=== PATIENT | female | born 1980 | race Caucasian/White ===

== ENCOUNTER 2017-12-23 11:49 | Emergency (ER) | payer SELFPAY ==
[~2017-12-23] VITALS: Ht 180.3 cm; Wt 145.1 kg
[2017-12-23 12:02] VITALS: BP 137/88
--- NOTE | 2017-12-23 12:13 | ED.ADGEN ---
Past History Past Medical History: Diabetes Past Surgical History: Other Alcohol Use: None Drug Use: None Adult General HPI HPI 37-year-old female presents the emergency department with 3 days of right eye photophobia, redness, and discharge. Denies decreased visual acuity. Does wear contact lenses. She suspects that she scraped surface of her eye with her fingernail. Admits to previous episodes. Denies any vomiting, headache, sinus pain around the area Review of Systems Review of Systems Constitutional: Denies fever or chills HENT: Denies nasal congestion or sore throat Respiratory: Denies cough or shortness of breath Neurologic: Denies headache, focal weakness or sensory changes All other systems were reviewed and found to be within normal limits, except as documented in this note. Family History Family History noncontributory Current Medications Current Medications Current Medications Medications (Trade) Dose Ordered Sig/Lindsey Start Time Stop Time Status Last Admin Dose Admin Fluorescein Sodium (Ful-Nanci 1mg) 1 strip 1X ONCE 12/23/17 12:45 12/23/17 12:46 DC 12/23/17 12:42 1 STRIP Homatropine HBr (Isopto Homatropine) 1 drop 1X ONCE 12/23/17 12:45 12/23/17 12:46 DC 12/23/17 12:43 1 DROP Tetracaine HCl (Tetracaine) 1 drop 1X ONCE 12/23/17 12:45 12/23/17 12:46 DC 12/23/17 12:42 1 DROP Allergies Allergies Allergies Coded Allergies Type Severity Reaction Last Updated Verified Sulfa (Sulfonamide Antibiotics) Allergy Intermediate 12/23/17 Yes adhesive Allergy Intermediate 12/23/17 Yes latex Allergy Intermediate 12/23/17 Yes amoxicillin Allergy Unknown 12/23/17 Yes none Physical Exam Physical Exam GENERAL: Awake, alert, no acute distress HEAD/EYES: Normocephalic, EOMI, injected right cornea ENT Airway patent, mucous membranes moist NECK: Supple, no meningismus, no swelling RESP: No respiratory distress, symmetrical expansion CV: Normal peripheral perfusion ABD/GI: Non distended SKIN: Warm, dry NEURO: Normal motor observed PSYCH: Cooperative, appropriate affect Current Patient Data Vital Signs Vital Signs Date Time Temp Pulse Resp B/P (MAP) Pulse Ox O2 Delivery O2 Flow Rate FiO2 12/23/17 12:02 98.1 91 22 97 Room Air EKG EKG [] Radiology/Procedures Radiology/Procedures [] Course & Med Decision Making Course & Med Decision Making Pertinent Labs and Imaging studies reviewed. (See chart for details) Fluorescein and tetracaine exam of the right eye reveals no corneal abrasion, no dendritic pattern. 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 YUDITH PEÑA DO Dec 23, 2017 12:13
[2017-12-23] MEDS ORDERED: HOMATROPINE OD ONE (12:45)
[2017-12-23] MEDS ORDERED: TETRACAINE 0.5% OPHTH SOLUTION 4ML BOTTLE. OD ONE (12:45)
[2017-12-23] MEDS ORDERED: FLUORESCEIN 1MG EYE STRIP. OD ONE (12:45)
[2017-12-23] MEDS ORDERED: OFLO5DRO RIGHTEYE (12:52)
== END 2017-12-23 13:04 | disposition home or self-care (01) ==
LOC: ER 11:49
DX: H10.31 Unspecified acute conjunctivitis, right eye (principal); E11.9 Type 2 diabetes mellitus without complications; Z88.2 Allergy status to sulfonamides; Z88.1 Allergy status to other antibiotic agents; Z91.040 Latex allergy status; Z88.8 Allergy status to other drugs, medicaments and biological substances
CPT/HCPCS: 99283

== ENCOUNTER 2018-03-18 11:18 | Emergency (ER) | payer SELFPAY ==
[~2018-03-18] VITALS: Ht 180.3 cm; Wt 143.8 kg
[2018-03-18 11:18] VITALS: BP 115/76
[~2018-03-18 11:18] MED LIST: OFLO5DRO RIGHTEYE
[2018-03-18] MEDS ORDERED: ACET-704 PO (11:46)
[2018-03-18] MEDS ORDERED: CLIN300C8 PO (11:46)
--- NOTE | 2018-03-18 11:46 | PHYS DOC ---
Past History Past Medical History: Diabetes Past Surgical History: Other Alcohol Use: None Drug Use: None Adult General HPI HPI Patient is a 38-year-old female who presents with complaint of left upper toothache that has been going on for the last couple months. She states that her tooth broke about 6 months ago but states the pain didn't start until about 2 months ago. She states that she is trying to set up a dentist appointment but states that she is having a hard time with state insurance. She denies any fever. Pain is worsened with chewing as well as hot and cold. She states that she has tried home remedies to include clove oil, teabags, etc. but states that she has had no relief. Review of Systems Review of Systems Constitutional: Denies fever or chills [] HENT: Positive dental pain[] Respiratory: Denies cough or shortness of breath [] Cardiovascular: No additional information not addressed in HPI [] GI: Denies nausea or vomiting [] Neurologic: Denies headache, focal weakness or sensory changes [] Allergies Allergies Allergies Coded Allergies Type Severity Reaction Last Updated Verified Sulfa (Sulfonamide Antibiotics) Allergy Intermediate 12/23/17 Yes adhesive Allergy Intermediate 12/23/17 Yes latex Allergy Intermediate 12/23/17 Yes amoxicillin Allergy Unknown 12/23/17 Yes Physical Exam Physical Exam Constitutional: Well developed, well nourished, no acute distress, non-toxic appearance. [] HENT: Normocephalic, atraumatic. Left upper lateral incisor appears fractured. There is moderate caries with surrounding gum swelling [] Neck: Normal range of motion, no tenderness, supple. No lymphadenopathy present. [] Cardiovascular: Regular rate and rhythm [] Lungs & Thorax: Bilateral breath sounds clear to auscultation [] Neurologic: Alert and oriented X 3, no focal deficits noted. [] EKG EKG [] Radiology/Procedures Radiology/Procedures [] Course & Med Decision Making Course & Med Decision Making Pertinent Labs and Imaging studies reviewed. (See chart for details) [] Dragon Disclaimer Dragon Disclaimer This electronic medical record was generated, in whole or in part, using a voice recognition dictation system. Departure Departure: Impression: Primary Impression: Pain due to dental caries Disposition: 01 HOME, SELF-CARE Condition: STABLE Referrals: DAISY DUARTE (PCP) Patient Instructions: Dental Caries, Dental Pain Scripts Acetaminophen With Codeine (TYLENOL WITH CODEINE #3 TABLET) 1 Each Tablet 1 TAB PO Q6HRS PRN for PAIN, #12 TAB Prov: BINDU PORTILLO Jr. DO 03/18/18 Clindamycin Hcl (CLINDAMYCIN HCL) 300 Mg Capsule 1 CAP PO TID for infection, #30 CAP Prov: BINDU PORTILLO Jr. DO 03/18/18 BINDU PORTILLO Jr. DO Mar 18, 2018 11:46
== END 2018-03-18 11:45 | disposition home or self-care (01) ==
LOC: ER 11:18
DX: K02.9 Dental caries, unspecified (principal); E11.9 Type 2 diabetes mellitus without complications; Z88.2 Allergy status to sulfonamides; Z88.1 Allergy status to other antibiotic agents; Z88.8 Allergy status to other drugs, medicaments and biological substances; Z91.040 Latex allergy status
CPT/HCPCS: 99283

== ENCOUNTER 2019-09-27 12:25 | Emergency (ER) | payer SELFPAY ==
[~2019-09-27] VITALS: Ht 180.3 cm; Wt 159.0 kg
[~2019-09-27 12:25] MED LIST changes: +ACET-704 PO; +CLIN300C8 PO
[2019-09-27] MEDS ORDERED: IV NORMAL SALINE 1,000ML 1,000 ML IV SCH (12:42)
[2019-09-27] MEDS ORDERED: MECLIZINE 12.5 MG TABLET. PO ONE (12:45)
--- NOTE | 2019-09-27 12:50 | PHYS DOC ---
Past History Past Medical History: Asthma, Diabetes, Other Additional Past Medical Histor: NEUROPATHY Past Surgical History: Cholecystectomy, , Other Additional Past Surgical Histo: LEFT ANKLE, LEFT WRIST Alcohol Use: None Drug Use: None General Adult EDM: Chief Complaint: DIZZY/LIGHT HEADED HPI: HPI: Patient is a 39-year-old female, with a history of diabetes, who presents to the emergency department for evaluation of dizziness which has been present for the past 3 days. She describes the dizziness both as a sense of lightheadedness and rotation but it seems like the latter is more predominant. The dizziness is worsened by head movements, particularly to the right. She denies any tinnitus or hearing changes, vision changes, new numbness or weakness other than her chronic neuropathy. She denies any new headaches, chest pain, shortness of breath, abdominal pain, nausea, or vomiting. There are no alleviating or exacerbating factors to her symptoms. Review of Systems: Review of Systems: Constitutional: Denies fever or chills Eyes: Denies change in visual acuity HENT: Denies nasal congestion or sore throat Respiratory: Denies cough or shortness of breath Cardiovascular: Denies chest pain or edema GI: Denies abdominal pain, nausea, vomiting, bloody stools or diarrhea : Denies dysuria Musculoskeletal: Denies back pain or joint pain Integument: Denies rash Neurologic: Denies headache, focal weakness or sensory changes Endocrine: Denies polyuria or polydipsia Lymphatic: Denies swollen glands Psychiatric: Denies depression or anxiety Heart Score: Risk Factors: Risk Factors: DM, Current or recent (<one month) smoker, HTN, HLP, family history of CAD, obesity. Risk Scores: Score 0 - 3: 2.5% MACE over next 6 weeks - Discharge Home Score 4 - 6: 20.3% MACE over next 6 weeks - Admit for Clinical Observation Score 7 - 10: 72.7% MACE over next 6 weeks - Early Invasive Strategies Current Medications: Current Meds: Current Medications Medications (Trade) Dose Ordered Sig/Lindsey Start Time Stop Time Status Last Admin Dose Admin Meclizine HCl (Antivert) 50 mg 1X ONCE 09/27/19 12:45 09/27/19 12:46 UNV Sodium Chloride 1,000 ml @ 1,000 mls/hr Q1H 09/27/19 12:42 09/27/19 13:41 UNV Allergies: Allergies: Allergies Coded Allergies Type Severity Reaction Last Updated Verified Sulfa (Sulfonamide Antibiotics) Allergy Intermediate 12/23/17 Yes adhesive Allergy Intermediate 12/23/17 Yes latex Allergy Intermediate 12/23/17 Yes amoxicillin Allergy Unknown 12/23/17 Yes Physical Exam: PE: PHYSICAL EXAM: CONSTITUTIONAL: Well developed, well nourished HEAD: normocephalic, atraumatic EENT: PERRL, EOMI. Conjunctivae normal color, there is very mild nystagmus, lateral, on rightward gaze, more accentuated with some head movements, sclerae non-icteric; moist mucous membranes. NECK: Supple, non-tender; no meningismus. LUNGS: Lungs CTA, breathing even and unlabored. Normal air movement. HEART: Regular rate and rhythm, no murmur CHEST: No deformity; non-tender ABDOMEN: The abdomen is soft, and non-tender, no masses or bruits. EXTREM: Normal ROM; no deformity, no calf tenderness. Normal pulses palpable in all extremities. There is no pedal edema. SKIN: No rash; no diaphoresis NEURO: Alert; normal speech and cognition; CN's grossly intact; strength grossly intact without focal deficit. Hfbaof-xrac-sapdej and heel augustin testing is normal. Visual stacy are intact by confrontation. Sensation is grossly normal with the exception of stocking/glove distribution decreased sensation consistent with the patient's history of diabetic neuropathy. NIH stroke scale score is 0. BACK: No CVA TTP. Current Patient Data: Labs: Laboratory Tests Test 09/27/19 12:37 White Blood Count 7.7 x10^3/uL Red Blood Count 4.57 x10^6/uL Hemoglobin 11.5 g/dL Hematocrit 36.6 % Mean Corpuscular Volume 80 fL Mean Corpuscular Hemoglobin 25 pg Mean Corpuscular Hemoglobin Concent 32 g/dL Red Cell Distribution Width 17.9 % Platelet Count 431 x10^3/uL Neutrophils (%) (Auto) 74 % Lymphocytes (%) (Auto) 19 % Monocytes (%) (Auto) 5 % Eosinophils (%) (Auto) 2 % Basophils (%) (Auto) 1 % Neutrophils # (Auto) 5.7 x10^3uL Lymphocytes # (Auto) 1.4 x10^3/uL Monocytes # (Auto) 0.4 x10^3/uL Eosinophils # (Auto) 0.2 x10^3/uL Basophils # (Auto) 0.1 x10^3/uL Sodium Level 137 mmol/L Potassium Level 4.4 mmol/L Chloride Level 99 mmol/L Carbon Dioxide Level 31 mmol/L Anion Gap 7 Blood Urea Nitrogen 15 mg/dL Creatinine 1.0 mg/dL Estimated GFR (Cockcroft-Gault) 61.4 BUN/Creatinine Ratio 15 Glucose Level 119 mg/dL Calcium Level 9.6 mg/dL Total Bilirubin 0.3 mg/dL Aspartate Amino Transf (AST/SGOT) 20 U/L Alanine Aminotransferase (ALT/SGPT) 28 U/L Alkaline Phosphatase 79 U/L Troponin I Quantitative < 0.017 ng/mL Total Protein 7.6 g/dL Albumin 3.3 g/dL Albumin/Globulin Ratio 0.8 Lipase 102 U/L Current Medications Medications (Trade) Dose Ordered Sig/Lindsey Route PRN Reason Start Time Stop Time Status Last Admin Dose Admin Meclizine HCl (Antivert) 50 mg 1X ONCE PO 09/27/19 12:45 09/27/19 12:54 DC 09/27/19 12:55 Sodium Chloride 1,000 ml @ 1,000 mls/hr Q1H IV 09/27/19 12:42 09/27/19 13:41 DC 09/27/19 12:55 Vital Signs: Vital Signs Date Time Temp Pulse Resp B/P (MAP) Pulse Ox O2 Delivery O2 Flow Rate FiO2 09/27/19 12:36 97.4 100 18 138/102 (114) 98 Room Air EKG: EKG: Normal sinus rhythm with a normal rate, normal axis, normal intervals, there are no acute ischemic ST/T changes. [] Radiology/Procedures: Radiology/Procedures: PROCEDURE: CT HEAD WO CONTRAST CT HEAD INDICATION: Reason: dizziness / Spl. Instructions: / History: COMPARISON: None Available. Exposure: One or more of the following individualized dose reduction techniques were utilized for this examination: 1. Automated exposure control 2. Adjustment of the mA and/or kV according to patient size 3. Use of iterative reconstruction technique TECHNIQUE: 5 mm contiguous axial images were obtained from the skull base to the vertex in both bone and soft tissue algorithm. FINDINGS: No abnormal attenuation within the brain parenchyma. No evidence of acute intracranial hemorrhage. No extra-axial fluid collections. No mass effect or midline shift. Ventricular size is appropriate. Basal cisterns are patent. No fractures identified.Mitchell-white differentiation is preserved.Globes and orbits are within normal limits. Paranasal sinuses and mastoid air cells are clear. IMPRESSION: No acute intracranial findings. [] Course & Med Decision Making: Course & Med Decision Making Pertinent Labs and Imaging studies reviewed. (See chart for details) [] 2:00 PM: Patient remains stable. She is feeling better. I discussed test results, the need for close follow-up, and return precautions. Dragon Disclaimer: Dragon Disclaimer: This electronic medical record was generated, in whole or in part, using a voice recognition dictation system. Departure Departure: Impression: Primary Impression: Dizziness Disposition: 01 HOME/RESIDENCE PRIOR TO ADM Condition: STABLE Referrals: PCP,UNKNOWN (PCP) JUAN PALMER MD Patient Instructions: Benign Positional Vertigo, Dizziness, Vertigo Scripts Meclizine Hcl (MECLIZINE HCL) 25 Mg Tablet 1 TAB PO Q6H PRN for Dizziness, #30 TAB Prov: YADIRA OCHOA MD 09/27/19 Justification of Admission: Justification of Admission: Justification of Admission Dx: N/A YADIRA OCHOA MD Sep 27, 2019 12:50
[2019-09-27 12:56] LABS: BASO # 0.1 x10^3/uL (0.0-0.2); BASO % 1 % (0-3); EOS # 0.2 x10^3/uL (0.0-0.7); EOS % 2 % (0-3); HEMATOCRIT 36.6 % (36.0-47.0); HEMOGLOBIN 11.5 g/dL (12.0-15.5); LYMPH # 1.4 x10^3/uL (1.0-4.8); LYMPH % 19 % (24-48); MEAN CORPUSCULAR HEMOGLOBIN 25 pg (25-35); MEAN CORPUSCULAR HGB CONC 32 g/dL (31-37); MEAN CORPUSCULAR VOLUME 80 fL (79-100); MONO # 0.4 x10^3/uL (0.0-1.1); MONO % 5 % (0-9); NEUT # 5.7 x10^3uL (1.8-7.7); NEUT % 74 % (31-73); PLATELET COUNT 431 x10^3/uL (140-400); RED BLOOD COUNT 4.57 x10^6/uL (3.50-5.40); RED CELL DISTRIBUTION WIDTH 17.9 % (11.5-14.5); WHITE BLOOD COUNT 7.7 x10^3/uL (4.0-11.0)
[2019-09-27 13:10] LABS: CALCIUM 9.6 mg/dL (8.5-10.1); GFR 61.4; POTASSIUM 4.4 mmol/L (3.5-5.1)
[2019-09-27 13:16] LABS: ALBUMIN 3.3 g/dL (3.4-5.0); ALBUMIN/GLOBULIN RATIO 0.8 (1.0-1.7); TOTAL BILIRUBIN 0.3 mg/dL (0.2-1.0); TOTAL PROTEIN 7.6 g/dL (6.4-8.2)
--- NOTE | 2019-09-27 13:48 | RAD ---
CT HEAD INDICATION: Reason: dizziness / Spl. Instructions: / History: COMPARISON: None Available. Exposure: One or more of the following individualized dose reduction techniques were utilized for this examination: 1. Automated exposure control 2. Adjustment of the mA and/or kV according to patient size 3. Use of iterative reconstruction technique TECHNIQUE: 5 mm contiguous axial images were obtained from the skull base to the vertex in both bone and soft tissue algorithm. FINDINGS: No abnormal attenuation within the brain parenchyma. No evidence of acute intracranial hemorrhage. No extra-axial fluid collections. No mass effect or midline shift. Ventricular size is appropriate. Basal cisterns are patent. No fractures identified.Mitchell-white differentiation is preserved.Globes and orbits are within normal limits. Paranasal sinuses and mastoid air cells are clear. IMPRESSION: No acute intracranial findings. Electronically signed by: Koko Rosas MD (09/27/2019 1:44 PM) [id number]
[2019-09-27] MEDS ORDERED: MECL-75 PO (14:01)
[2019-09-27 14:23] VITALS: BP 158/101
--- NOTE | 2019-09-27 16:08 | EKG ---
[address] [address] Test Date: 2019-09-27 Test Time: 12:46:09 Pat Name: ABDIFATAH PAINTING Department: Room: Gender: F [employer] And Former: [id number] : 1980 Requested By: YADIRA OCHOA Order Number: [id number] Reading MD: Measurements Intervals [place] Rate: 92 P: 28 NC: 158 QRS: 16 QRSD: 78 T: 26 QT: 356 QTc: 445 Interpretive Statements SINUS RHYTHM NORMAL ECG RI6.02 No previous ECG available for comparison
== END 2019-09-27 14:25 | disposition home or self-care (01) ==
LOC: ER 12:25
DX: R42 Dizziness and giddiness (principal); J45.909 Unspecified asthma, uncomplicated; E11.40 Type 2 diabetes mellitus with diabetic neuropathy, unspecified; Z88.8 Allergy status to other drugs, medicaments and biological substances; Z88.1 Allergy status to other antibiotic agents; Z91.040 Latex allergy status; Z88.2 Allergy status to sulfonamides
CPT/HCPCS: 36415; 70450; 80053; 83690; 84484; 85025; 93005; 96360; 99285; J7030; J8597

== ENCOUNTER 2020-02-27 08:50 | Emergency (ER) | payer SELFPAY ==
[~2020-02-27] VITALS: Ht 180.3 cm; Wt 159.0 kg
[~2020-02-27 08:50] MED LIST changes: +MECL-75 PO
[2020-02-27] MEDS ORDERED: DEXAMETHASONE 4 MG TABLET PO ONE (09:00)
[2020-02-27 09:02] VITALS: BP 115/87
[2020-02-27] MEDS ORDERED: CLIN300C8 PO (09:16)
--- NOTE | 2020-02-27 09:17 | PHYS DOC ---
Past History Past Medical History: Asthma, Diabetes, Other Additional Past Medical Histor: NEUROPATHY Past Surgical History: Cholecystectomy, , Other Additional Past Surgical Histo: LEFT ANKLE, LEFT WRIST Alcohol Use: None Drug Use: None General Adult EDM: Chief Complaint: SORE THROAT HPI: HPI: 40-year-old female presents with report of sore throat x 1 week. Patient reports she typically gets a sore throat at this time every year. Reports worse at night. Denies any fever or chills. Denies cough. Denies known sick contacts. Denies known exposure to COVID-19. Review of Systems: Review of Systems: Constitutional: Denies fever or chills Eyes: Denies redness or eye pain HENT: Reports nasal congestion and sore throat Respiratory: Denies cough or shortness of breath Cardiovascular: Denies chest pain or palpitations GI: Denies abdominal pain, nausea, or vomiting : Denies dysuria or hematuria Musculoskeletal: Denies back pain or joint pain Integument: Denies rash or skin lesions Neurologic: Denies headache, focal weakness or sensory changes Complete systems were reviewed and found to be within normal limits, except as d ocumented in this note. Current Medications: Current Meds: Current Medications Medications (Trade) Dose Ordered Sig/Lindsey Start Time Stop Time Status Last Admin Dose Admin Dexamethasone (Decadron) 10 mg 1X ONCE 02/27/20 09:00 02/27/20 09:02 DC 02/27/20 09:11 10 MG Allergies: Allergies: Allergies Coded Allergies Type Severity Reaction Last Updated Verified Sulfa (Sulfonamide Antibiotics) Allergy Intermediate 12/23/17 Yes adhesive Allergy Intermediate 12/23/17 Yes latex Allergy Intermediate 12/23/17 Yes amoxicillin Allergy Unknown 12/23/17 Yes Physical Exam: PE: Constitutional: Well developed, well nourished, no acute distress, non-toxic appearance HENT: Normocephalic, atraumatic, pharynx erythema, no exudate Eyes: Conjunctiva normal, no discharge Neck: Normal range of motion, no tenderness, supple Lungs & Thorax: No respiratory distress, equal chest rise and fall Skin: Warm, dry, no erythema, no rash Extremities: No tenderness, ROM intact, no edema Neurologic: Alert and oriented X 3, no focal deficits noted Psychologic: Affect normal, judgment normal Current Patient Data: Vital Signs: Vital Signs Date Time Temp Pulse Resp B/P (MAP) Pulse Ox O2 Delivery O2 Flow Rate FiO2 02/27/20 09:02 98.1 93 18 115/87 (96) 98 EKG: EKG: [] Radiology/Procedures: Radiology/Procedures: [] Course & Med Decision Making: Course & Med Decision Making Pertinent Lab studies reviewed. (See chart for details) Patient presents with sore throat x1 week. Rapid strep positive. Symptomatic treatment provided with oral steroid. Empiric antibiotics prescribed. Patient stable for discharge with outpatient follow-up with PCP. Discussed findings and plan with patient, who acknowledges understanding and agreement. Mikie Disclaimer: Mikie Disclaimer: This electronic medical record was generated, in whole or in part, using a voice recognition dictation system. Departure Departure: Impression: Primary Impression: Strep pharyngitis Disposition: 01 DC HOME SELF CARE/HOMELESS Condition: STABLE Referrals: PCP,NO (PCP) Patient Instructions: Strep Throat, Group A Streptococcus Scripts Clindamycin Hcl (CLINDAMYCIN HCL) 300 Mg Capsule 1 CAP PO TID for infection for 7 Days, #21 CAP Prov: ENRRIQUE ANTONIO DO 02/27/20 ENRRIQUE ANTONIO DO Feb 27, 2020 09:17
== END 2020-02-27 09:28 | disposition home or self-care (01) ==
LOC: ER 08:50
DX: J02.0 Streptococcal pharyngitis (principal); B95.4 Other streptococcus as the cause of diseases classified elsewhere; R09.81 Nasal congestion; J45.909 Unspecified asthma, uncomplicated; E11.40 Type 2 diabetes mellitus with diabetic neuropathy, unspecified; Z90.49 Acquired absence of other specified parts of digestive tract; Z98.890 Other specified postprocedural states; Z88.2 Allergy status to sulfonamides; Z91.040 Latex allergy status; Z88.1 Allergy status to other antibiotic agents; Z88.8 Allergy status to other drugs, medicaments and biological substances
CPT/HCPCS: 87880; 99283; J8540

== ENCOUNTER → 2020-06-02 | Outpatient (CLI) | payer OTHER ==
[~2020-06-02] MED LIST changes: -CLIN300C8 PO; +CLIN300C9 PO
--- NOTE | 2020-06-02 16:14 | RAD ---
EXAM: Bilateral screening mammogram. HISTORY: 40-year-old female presents for screening mammography. TECHNIQUE: Full-field digital craniocaudal and mediolateral oblique views of both breasts are obtaine d for evaluation. Computer aided detection was applied. COMPARISON: None. This is baseline mammogram. BREAST PARENCHYMAL DENSITY: Level C - Heterogeneously dense. FINDINGS: There is focal asymmetry within the 2:00 position of the left breast at mid depth centered approximately 8 cm from the nipple. There are additional areas of asymmetry which do not persist betw een projections. There is no suspicious calcification. IMPRESSION: BI-RADS Category 0: Incomplete. Additional imaging needed. RECOMMENDATION: Further evaluation with a full field true lateral view and spot compression views of the left breast to assess asymmetry at the 2:00 position is recommended. Sonographic imaging can also be performed if deemed indicated based on additional mammographic findings. If your mammogram demonstrates that you have dense breast tissue, which could hide abnormalities, and if you have other risk factors for breast cancer that have been identified, you might benefit from s upplemental screening tests that may be suggested by your ordering physician. Dense breast tissue, i n and of itself, is a relatively common condition. This information is not provided to cause undue c oncern, but rather to raise your awareness and to promote discussion with your physician regarding th e presence of other risk factors, in addition to dense breast tissue. A report of your mammography re sults will be sent to you and your physician. You should contact your physician if you have any ques tions or concerns regarding this report. Mammography is a sensitive method for finding small breast cancers, but it does not detect them all a nd is not a substitute for careful clinical examination. A negative mammogram does not negate a clin ically suspicious finding and should not result in delay in biopsying a clinically suspicious abnorma lity. PQRS compliance statement - Patient information was entered into a reminder system with a target due date for the next mammogram. "Our facility is accredited by the [employer] Mammography Program." Electronically signed by: Yamini Zhang MD (06/02/2020 4:12 PM) [id number]
== END ==
LOC: MAMMO 14:56
PROVIDERS: ATTEND Nurse Practitioner Family
DX: Z12.31 Encounter for screening mammogram for malignant neoplasm of breast (principal)
CPT/HCPCS: 77067

== ENCOUNTER 2020-06-22 18:51 | Emergency (ER) | payer SELFPAY ==
[~2020-06-22] VITALS: Ht 180.3 cm; Wt 162.7 kg
[2020-06-22] MEDS ORDERED: IPRATRPIUM/ALBUTEROL 0.5/2.5MG 3 ML NEBU. NEB ONE (19:15)
[2020-06-22] MEDS ORDERED: DEXAMETHASONE 4 MG TABLET PO ONE (19:15)
[2020-06-22] MEDS ORDERED: DEXAMETHASONE 4 MG TABLET ONE (19:17)
--- NOTE | 2020-06-22 19:22 | PHYS DOC ---
Past History Past Medical History: Asthma, Diabetes, Other Additional Past Medical Histor: NEUROPATHY Past Surgical History: Cholecystectomy, , Other Additional Past Surgical Histo: LEFT ANKLE, LEFT WRIST Alcohol Use: None Drug Use: None Adult General Chief Complaint Chief Complaint: COUGH HPI HPI Patient is a 40-year-old female with a past medical history of asthma and [id number] smoking history who presents with chronic cough. States over the last 4 to 6 weeks she has had a daily cough with increased sputum production in the morning. [facility] she has an appointment with her primary care physician in June but did not want to wait. States she also has seasonal allergies which she thinks is acting up as she has had some sneezing as well with itchy eyes. Denies any recent travel, illnesses, fevers, Covid/flu/cold symptoms, known ill contacts. Denies any chest pain, shortness of breath, dyspnea on exertion, orthopnea, PND or edema. Denies any weight gain or loss. States she is otherwise eating and drinking normally. States he is making urine and stool normally for her. Review of Systems Review of Systems Review of systems otherwise unremarkable except noted in HPI Current Medications Current Medications Current Medications Medications (Trade) Dose Ordered Sig/Lindsey Start Time Stop Time Status Last Admin Dose Admin Albuterol/ Ipratropium (Duoneb) 3 ml 1X ONCE 06/22/20 19:15 06/22/20 19:16 UNV Dexamethasone (Decadron) 10 mg 1X ONCE 06/22/20 19:15 06/22/20 19:16 UNV Allergies Allergies Allergies Coded Allergies Type Severity Reaction Last Updated Verified Sulfa (Sulfonamide Antibiotics) Allergy Intermediate 12/23/17 Yes adhesive Allergy Intermediate 12/23/17 Yes latex Allergy Intermediate 12/23/17 Yes amoxicillin Allergy Unknown 12/23/17 Yes Physical Exam Physical Exam Constitutional: Well developed, well nourished, no acute distress, non-toxic appearance. [] HENT: Normocephalic, atraumatic, bilateral external ears normal, oropharynx moist, no oral exudates, nose normal. [] Eyes: conjunctiva normal, no discharge. [] Cardiovascular:Heart rate regular rhythm, no murmur [] Lungs & Thorax: Global bilateral scant rhonchi with very mild end expiratory wheeze Abdomen: soft, no tenderness, no masses, no pulsatile masses. [] Skin: Warm, dry, no erythema, no rash. [] Extremities: No tenderness, no cyanosis, no clubbing, ROM intact, no edema. [] Neurologic: Alert and oriented X 3, normal motor function, normal sensory function, no focal deficits noted. [] Psychologic: Affect normal, judgement normal, mood normal. [] EKG EKG [] Radiology/Procedures Radiology/Procedures Chest x-ray with no pneumothorax, obvious consolidation, probable cardiomegaly with signs of bronchitis [] Heart Score C/O Chest Pain: No Risk Factors: Risk Factors: DM, Current or recent (<one month) smoker, HTN, HLP, family history of CAD, obesity. Risk Scores: Risk Factors: DM, Current or recent (<one month) smoker, HTN, HLP, family history of CAD, obesity. Course & Med Decision Making Course & Med Decision Making Patient is a 40-year-old female who presents with cough for 4 to 6 weeks with i ncreased sputum Vital signs not concerning. Physical exam noted above. Symptoms suggestive of COPD exacerbation. Given breathing treatment. Given steroids. Started on doxycycline in the ED, as patient states she has had pneumonia couple times in the past. [] Dragon Disclaimer Dragon Disclaimer This electronic medical record was generated, in whole or in part, using a voice recognition dictation system. Departure Departure: Impression: Primary Impression: COPD exacerbation Disposition: DC HOME SELF CARE/HOMELESS Condition: GOOD Referrals: SOHAN RAMOS (PCP) Patient Instructions: Chronic Obstructive Pulmonary Disease Exacerbation Additional Instructions: Please read all attached information. Please take your antibiotics as prescribed. Please call your primary care physician first thing in the morning to set up a follow-up appointment sooner than your upcoming June appointment for ED follow-up. Please come back to the ED with new or concerning symptoms as discussed. Scripts Doxycycline Hyclate (DOXYCYCLINE HYCLATE) 100 Mg Tablet 1 TAB PO BID for copd, #13 TAB Prov: RIOS RIVERA MD 06/22/20 RIOS RIVERA MD Jun 22, 2020 19:22
[2020-06-22] MEDS ORDERED: DOXY100T PO (20:41)
[2020-06-22] MEDS ORDERED: DOXYCYCLINE HYCLATE 100 MG TABLET PO ONE (20:45)
[2020-06-22 20:48] VITALS: BP 147/86
--- NOTE | 2020-06-22 21:33 | RAD ---
EXAM: AP View of the chest DATE: 06/22/2020 8:26 PM INDICATION: Reason: month of cough / Spl. Instructions: / History: COMPARISON: No Prior FINDINGS: Examination is limited given prominent overlying soft tissues and limited radiographic penetration. W ithin these constraints: The heart is not enlarged. Mediastinal and hilar contours are normal. No focal parenchymal airspace opacity. No pleural effusion or pneumothorax. Mild elevation/eventration of the hemidiaphragm bilaterally. IMPRESSION: 1. No radiographic evidence for acute cardiopulmonary process. Electronically signed by: Benny Carlson MD (06/22/2020 9:31 PM) FRANSISCA
== END 2020-06-22 20:50 | disposition home or self-care (01) ==
LOC: ER 18:51
DX: J44.1 Chronic obstructive pulmonary disease with (acute) exacerbation (principal); E11.9 Type 2 diabetes mellitus without complications; Z88.2 Allergy status to sulfonamides; Z88.8 Allergy status to other drugs, medicaments and biological substances; Z91.040 Latex allergy status; Z88.1 Allergy status to other antibiotic agents
CPT/HCPCS: 71045; 94640; 99283; J8540

== ENCOUNTER → 2020-06-23 | Outpatient (CLI) | payer OTHER ==
[2020-06-22 20:48] VITALS: BP 147/86
[~2020-06-23] MED LIST changes: +DOXY100T PO
--- NOTE | 2020-06-24 09:55 | RAD ---
Examination: 1. Left digital diagnostic mammogram. 2. Limited left breast ultrasound. INDICATION: 40-year-old woman recalled from baseline mammographic screening for asymmetry in the late ral left breast COMPARISON: Bilateral screening mammogram of 06/02/2020 TECHNIQUE: A full field left ML view as well as spot compression CC and MLO views of the left breast were obtained. The full field mammogram was reviewed with computer-aided detection. Targeted ultrasou nd of the lateral left breast was subsequently pursued. FINDINGS: Heterogeneously dense breast parenchyma. Additional spot compression views of the left breast show persistent nodularity that appear to locali ze to the lower outer quadrant anterior third. Targeted ultrasound of the lateral left breast identifies a 9 mm oval parallel orientation mixed echo genicity mass with posterior acoustic shadowing showing internal septation. This may correspond with the nodularity recall from screening and could represent a cluster of microcysts but the margins are indistinct. This is mildly suspicious. IMPRESSION: Suspicious 9 mm mass in the lateral left breast at the 4:00 position 5 cm from the nipple. Recommend ultrasound-guided left breast core needle biopsy. BI-RADS Category 4 Findings suspicious for malignancy. Biopsy recommended. Findings and recommendations telephoned and discussed with nurse Katia who took the report on behal f of patient's referring provider Aleksandra Dumont at 9:18 AM on 06/24/2020 Electronically signed by: Siria Gutierrez MD (06/24/2020 9:53 AM) [id number]
== END ==
LOC: MAMMO 12:59
PROVIDERS: ATTEND Nurse Practitioner Family
DX: R92.2 Inconclusive mammogram (principal); N63.23 Unspecified lump in the left breast, lower outer quadrant
CPT/HCPCS: 76641; 77065

== ENCOUNTER 2020-09-12 20:18 | Emergency (ER) | payer SELFPAY ==
[~2020-09-12] VITALS: Ht 180.3 cm; Wt 165.2 kg
[2020-09-12 20:25] VITALS: BP 121/82
--- NOTE | 2020-09-12 20:49 | PHYS DOC ---
Past History Past Medical History: COPD, Depression, Diabetes, High Cholesterol, Hypertension, Other Additional Past Medical Histor: CHRONIC CIRROSIS Past Surgical History: Cholecystectomy, , Other Additional Past Surgical Histo: LEFT ANKLE, LEFT WRIST Alcohol Use: None Drug Use: None General Adult EDM: Chief Complaint: FOOT INJURY PAIN HPI: HPI: Patient is a 40-year-old female coming in for 3 days of pain to her left lateral foot. Patient states she is unsure but had some sort of stinger or splinter in her foot. Says her removed it but did not really pay attention to what was so she is unsure of what the material was. Patient states she has had worsening pain to palpation. Patient states she normally does not have foot pain but she has neuropathy and is taking gabapentin and baclofen. Otherwise been well. No systemic complaints. Last tetanus 4 years ago Review of Systems: Review of Systems: All other systems within normal limits except for as noted in the HPI Allergies: Allergies: Allergies Coded Allergies Type Severity Reaction Last Updated Verified Sulfa (Sulfonamide Antibiotics) Allergy Intermediate 12/23/17 Yes adhesive Allergy Intermediate 12/23/17 Yes latex Allergy Intermediate 12/23/17 Yes amoxicillin Allergy Unknown 12/23/17 Yes Physical Exam: PE: Constitutional: Well developed, well nourished, no acute distress, non-toxic appearance. [] HENT: Normocephalic, atraumatic, bilateral external ears normal, nose normal. [] Eyes: PERRLA, conjunctiva normal, no discharge. [] Neck: No rigidity, supple, no stridor. [] Cardiovascular: Regular rate and rhythm, brisk cap refill [] Lungs & Thorax: Non labored symmetric respirations, no tachypnea or respiratory distress [] Abdomen: Soft, nondistended. Skin: Warm, dry, no erythema, no rash. [] Back: Unremarkable Extremities: No deformities, range of motion grossly intact, no lower extremity edema. Tenderness over mid to distal left fifth metatarsal, small amount of erythema and edema when compared to right foot in the same area. No puncture wounds or foreign bodies visualized. [] Neurologic: Alert and oriented X 3, no focal deficits noted. [] Psychologic: Affect normal, judgement normal, mood normal. [] Current Patient Data: Vital Signs: Vital Signs Date Time Temp Pulse Resp B/P (MAP) Pulse Ox O2 Delivery O2 Flow Rate FiO2 09/12/20 20:25 98.1 98 16 121/82 (95) 98 Room Air EKG: EKG: [] Radiology/Procedures: Radiology/Procedures: EP interpretation left foot x-ray: No radiopaque foreign bodies, no osseous deformity, dislocation or fracture. Mild edema on lateral foot. Heart Score: C/O Chest Pain: No Risk Factors: Risk Factors: DM, Current or recent (<one month) smoker, HTN, HLP, family history of CAD, obesity. Risk Scores: Score 0 - 3: 2.5% MACE over next 6 weeks - Discharge Home Score 4 - 6: 20.3% MACE over next 6 weeks - Admit for Clinical Observation Score 7 - 10: 72.7% MACE over next 6 weeks - Early Invasive Strategies Course & Med Decision Making: Course & Med Decision Making No puncture wound or retained foreign body seen on physical exam or x-ray. Patient's lateral foot is swollen and red compared to right. Presumed as underlying infection and cellulitis, will give antibiotics due to patient's history of diabetes and neuropathy.. No fluctuance or drainage. [] Dragon Disclaimer: Dragon Disclaimer: This electronic medical record was generated, in whole or in part, using a voice recognition dictation system. Departure Departure: Impression: Primary Impression: Cellulitis of left foot Disposition: HOME / SELF CARE / HOMELESS Condition: STABLE Referrals: SOHAN RAMOS (PCP) Patient Instructions: Cellulitis, [id number] Scripts Cephalexin (CEPHALEXIN) 500 Mg Capsule 1 CAP PO TID for antibiotic for 7 Days, #21 CAP Prov: MAY HA MD 09/12/20 MAY HA MD Sep 12, 2020 20:49
[2020-09-12] MEDS ORDERED: IBUPROFEN 600 MG TABLET. PO ONE (21:00)
[2020-09-12] MEDS ORDERED: CEPH500C PO (21:03)
[2020-09-12] MEDS ORDERED: ACET-1871 PO (21:08)
[2020-09-12] MEDS ORDERED: CEPHALEXIN 250 MG CAPSULE ONE (21:11)
[2020-09-12] MEDS ORDERED: CEPHALEXIN 250 MG CAPSULE PO ONE (21:15)
--- NOTE | 2020-09-12 21:23 | RAD ---
Exam: Left foot 3 views INDICATION: Lateral foot pain near mid fifth metatarsal TECHNIQUE: Frontal, lateral and oblique views of the left foot Comparisons: None FINDINGS: Soft tissue swelling noted at the forefoot. Bone mineralization is normal. No acute or healed fractur es. There is degenerative change at the tibiotalar joint space. IMPRESSION: No acute osseous abnormality Electronically signed by: Parviz Delgado MD (09/12/2020 9:21 PM) RELL
== END 2020-09-12 21:15 | disposition home or self-care (01) ==
LOC: ER 20:18
DX: L03.116 Cellulitis of left lower limb (principal); I10 Essential (primary) hypertension; J44.9 Chronic obstructive pulmonary disease, unspecified; E11.9 Type 2 diabetes mellitus without complications; Z90.49 Acquired absence of other specified parts of digestive tract; Z88.1 Allergy status to other antibiotic agents; Z91.040 Latex allergy status; Z88.2 Allergy status to sulfonamides
CPT/HCPCS: 73630; 99283-25

== ENCOUNTER 2021-02-21 13:14 | Emergency (ER) | payer SELFPAY ==
[~2021-02-21] VITALS: Ht 180.3 cm; Wt 165.2 kg
[~2021-02-21 13:14] MED LIST changes: +ACET-1871 PO; +CEPH500C PO; +CLIN-95 PO; -CLIN300C9 PO
[2021-02-21] MEDS ORDERED: CLIN-95 PO (13:36)
--- NOTE | 2021-02-21 13:36 | PHYS DOC ---
Past History Past Medical History: COPD, Depression, Diabetes, High Cholesterol, Hypertension, Other Additional Past Medical Histor: CHRONIC CIRROSIS Past Surgical History: Cholecystectomy, , Other Additional Past Surgical Histo: LEFT ANKLE, LEFT WRIST Alcohol Use: None Drug Use: None General Adult EDM: Chief Complaint: EARACHE/EAR PAIN HPI: HPI: Patient is a 41-year-old female who presents to the emergency department today for left ear pain that started . She rates her pain 9 out of 10. She states that she has been applying heating pads and taking ibuprofen. She denies any decreased hearing, nasal congestion or drainage, fevers, cough, sore throat. Review of Systems: Review of Systems: Constitutional: See HPI HENT: See HPI Respiratory: See HPI Allergies: Allergies: Allergies Coded Allergies Type Severity Reaction Last Updated Verified Sulfa (Sulfonamide Antibiotics) Allergy Intermediate 12/23/17 Yes adhesive Allergy Intermediate 12/23/17 Yes latex Allergy Intermediate 12/23/17 Yes amoxicillin Allergy Unknown 12/23/17 Yes Physical Exam: PE: Constitutional: Well developed, well nourished, no acute distress, non-toxic appearance. [] HENT: Normocephalic, atraumatic, bilateral external ears normal, left TM erythematous but intact, small abrasion noted inside of l. ear canal, oropharynx moist, no oral exudates, nose normal. [] Eyes: PERRL, EOMI, conjunctiva normal, no discharge. [] Neck: Normal range of motion, no stridor Cardiovascular:Heart rate regular rhythm, no murmur [] Lungs & Thorax: Bilateral breath sounds clear to auscultation [] Abdomen: Bowel sounds normal, soft, no tenderness, obese, no masses, no pulsatile masses. [] Skin: Warm, dry, no erythema, no rash. [] Back: Normal range of motion Extremities: No tenderness, no cyanosis, no clubbing, ROM intact, no edema. [] Neurologic: Alert and oriented X 3, normal motor function, normal sensory fun ction, no focal deficits noted. [] Psychologic: Affect normal, judgement normal, mood normal. [] EKG: EKG: [] Radiology/Procedures: Radiology/Procedures: [] Heart Score: C/O Chest Pain: N/A Risk Factors: Risk Factors: DM, Current or recent (<one month) smoker, HTN, HLP, family history of CAD, obesity. Risk Scores: Score 0 - 3: 2.5% MACE over next 6 weeks - Discharge Home Score 4 - 6: 20.3% MACE over next 6 weeks - Admit for Clinical Observation Score 7 - 10: 72.7% MACE over next 6 weeks - Early Invasive Strategies Course & Med Decision Making: Course & Med Decision Making Pertinent Labs and Imaging studies reviewed. (See chart for details) Patient presents emergency department today for left ear pain. On physical exam, it appears that patient has an erythematous tympanic membrane but it is intact. Patient be discharged home with an antibiotic. She reports that she is allergic to amoxicillin, sulfa and cephalosporins. Patient be discharged home with clindamycin. Patient advised to take Tylenol and/or ibuprofen for her pain and follow-up with her primary care provider. I discussed with patient all findings as well as the need to follow-up with PCP for further evaluation and treatment or return to the ER if any new or worsening symptoms. Strict return precautions were also discussed at length. Patient voiced understanding and agreement with the plan. Patient is hemodynamically stable at the time of disposition. Dragon Disclaimer: [employer] Disclaimer: This electronic medical record was generated, in whole or in part, using a voice recognition dictation system. Departure Departure: Impression: Primary Impression: Otitis media Qualified Codes: H66.90 - Otitis media, unspecified, unspecified ear Disposition: HOME / SELF CARE / HOMELESS Condition: GOOD Referrals: JOSSIE ALBARADO APRN (PCP) Patient Instructions: Otitis Media, Adult Additional Instructions: You were seen in the emergency department for left ear pain. You have a left ear infection. This will be treated with an antibiotic. Please start and finish it completely. You can take Tylenol and/or ibuprofen for your pain. Follow-up with your primary care provider on Tuesday regarding your ER visit. Return to the emergency department if you develop worsening of your pain, decreased hearing, high fevers refractory to treatment, difficulty breathing or shortness of breath, intractable nausea or vomiting or any new or worsening concerns. Scripts Clindamycin Hcl (CLINDAMYCIN HCL) 300 Mg Capsule 1 CAP PO TID for otitis media for 7 Days, #21 CAP 0 Refills Prov: STEPHANY ARMSTRONG APRN 02/21/21 STEPHANY ARSMTRONG APRN Feb 21, 2021 13:36
[2021-02-21 13:47] VITALS: BP 136/86
== END 2021-02-21 13:42 | disposition home or self-care (01) ==
LOC: ER 13:14
DX: S00.412A Abrasion of left ear, initial encounter (principal); H66.92 Otitis media, unspecified, left ear; J44.9 Chronic obstructive pulmonary disease, unspecified; E11.9 Type 2 diabetes mellitus without complications; E78.00 Pure hypercholesterolemia, unspecified; I10 Essential (primary) hypertension; Z88.2 Allergy status to sulfonamides; Z88.1 Allergy status to other antibiotic agents; Z91.040 Latex allergy status; Z88.8 Allergy status to other drugs, medicaments and biological substances; X58.XXXA Exposure to other specified factors, initial encounter; Y93.89 Activity, other specified; Y92.89 Other specified places as the place of occurrence of the external cause; Y99.8 Other external cause status
CPT/HCPCS: 99283

== ENCOUNTER 2021-07-04 21:32 | Emergency (ER) | payer SELFPAY ==
[~2021-07-04] VITALS: Ht 180.3 cm; Wt 167.6 kg
[~2021-07-04 21:32] MED LIST changes: -ACET-1871 PO; +ACET1TAB63 PO
--- NOTE | 2021-07-04 21:44 | PHYS DOC ---
Past History Past Medical History: COPD, Depression, Diabetes, High Cholesterol, Hypertension, Other Additional Past Medical Histor: CHRONIC CIRROSIS Past Surgical History: Cholecystectomy, , Other Additional Past Surgical Histo: LEFT ANKLE, LEFT WRIST Alcohol Use: None Drug Use: None Adult General Chief Complaint Chief Complaint: NAUSEA/VOMITING/DIARRHEA HPI HPI Patient is a 41-year-old female who presents to the emergency department with a day of nonbloody nonbilious emesis x4 and some soft stools. Denies recent traumas, travels, illness, fevers, chest pain or shortness of breath, abdominal pain, dysuria, hematuria or blood in the stool. States she had some mild Pankaj Julio Cesar last night and several hours later started to have an upset stomach, nausea and vomiting first which worked its way into some diarrhea. Denies any other recent traumas, travels, illnesses, fevers, chest pain, shortness of breath, abdominal pain, dysuria, hematuria or blood in the stool. Review of Systems Review of Systems Review of systems otherwise unremarkable except noted in HPI Allergies Allergies Allergies Coded Allergies Type Severity Reaction Last Updated Verified Sulfa (Sulfonamide Antibiotics) Allergy Intermediate 12/23/17 Yes adhesive Allergy Intermediate 12/23/17 Yes latex Allergy Intermediate 12/23/17 Yes amoxicillin Allergy Unknown 12/23/17 Yes Physical Exam Physical Exam Constitutional: Well developed, well nourished, no acute distress, non-toxic appearance. [] HENT: Normocephalic, atraumatic, bilateral external ears normal, oropharynx moist, no oral exudates, nose normal. [] Eyes: conjunctiva normal, no discharge. [] Neck: Normal range of motion, no tenderness, supple, no stridor. [] Cardiovascular: Sinus tachycardia Lungs & Thorax: Bilateral breath sounds clear to auscultation [] Abdomen: soft, no tenderness, no masses, no pulsatile masses. [] Skin: Warm, dry, no erythema, no rash. [] Back: CVA tenderness. [] Extremities: No tenderness, no cyanosis, no clubbing, ROM intact, no edema. [] Neurologic: Alert and oriented X 3, no focal deficits noted. [] Psychologic: Affect normal, judgement normal, mood normal. [] EKG EKG [] Radiology/Procedures Radiology/Procedures [] Heart Score C/O Chest Pain: No Risk Factors: Risk Factors: DM, Current or recent (<one month) smoker, HTN, HLP, family history of CAD, obesity. Risk Scores: Risk Factors: DM, Current or recent (<one month) smoker, HTN, HLP, family history of CAD, obesity. Course & Med Decision Making Course & Med Decision Making Patient is a 41-year-old female who presents with nausea, vomiting and diarrhea for the day Vital signs notable for sinus tachycardia. Physical exam noted above. Given medicines for symptom control On reassessment patient able to take p.o. liquids and was feeling better and ready to go home. Given Zofran for home Advised on symptom management, diet and hydration at home over the next couple of days. Advised to follow-up on Tuesday with primary care physician Gave return precautions to the ED. Patient grateful, verbalized understanding and agreed with plan of discharge [] Dragon Disclaimer Dragon Disclaimer This electronic medical record was generated, in whole or in part, using a voice recognition dictation system. Departure Departure: Impression: Primary Impression: Nausea vomiting and diarrhea Disposition: 01 HOME / SELF CARE / HOMELESS Condition: STABLE Referrals: JOSSEI ALBARADO APRN (PCP) Patient Instructions: Diarrhea, Nausea and Vomiting Additional Instructions: Thank you for coming into the emergency department tonight and allowing us to take care of you. Please read the attached information carefully to go over things we discussed. Please eat a light clear diet over the next couple of days as we discussed and stay well-hydrated. Please take your nausea medicine as prescribed and as needed. Please follow-up on Tuesday with your primary care physician update on your ED visit and set up a follow-up appointment. Please come back with new or concerning symptoms as we discussed RIOS RIVERA MD Jul 04, 2021 21:44
[2021-07-04] MEDS ORDERED: diphenhydrAMINE HCL 25 MG CAPSULE PO ONE (22:00)
[2021-07-04] MEDS ORDERED: METOCLOPRAMIDE HCL 10 MG/2 ML VIAL. IM ONE (22:00)
[2021-07-04] MEDS ORDERED: ONDANSETRON ODT 4 MG TAB.RAPDIS PO ONE (22:00)
[2021-07-04] MEDS ORDERED: KETOROLAC 30 MG/ML VIAL. IM ONE (22:15)
[2021-07-04 22:38] VITALS: BP 123/82
[2021-07-04] MEDS ORDERED: ONDANSETRON 4MG ODT 4TABLET STARTPACK. PO ONE (23:00)
== END 2021-07-04 22:43 | disposition home or self-care (01) ==
LOC: ER 21:32
DX: R11.2 Nausea with vomiting, unspecified (principal); R19.7 Diarrhea, unspecified; K30 Functional dyspepsia; J44.9 Chronic obstructive pulmonary disease, unspecified; E11.9 Type 2 diabetes mellitus without complications; E78.00 Pure hypercholesterolemia, unspecified; I10 Essential (primary) hypertension; Z90.49 Acquired absence of other specified parts of digestive tract; Z98.890 Other specified postprocedural states; Z88.2 Allergy status to sulfonamides; Z91.040 Latex allergy status; Z88.1 Allergy status to other antibiotic agents; Z88.8 Allergy status to other drugs, medicaments and biological substances
CPT/HCPCS: 96372; 99284; J1885; J2765; Q0162; Q0163